=== PATIENT | male | born 1980 | race Hispanic/Latino ===

== ENCOUNTER 2025-10-06 06:53 | Emergency (ER) | payer SELFPAY ==
[~2025-10-06] VITALS: Ht 175.3 cm; Wt 88.0 kg
[2025-10-06] MEDS: CEPHALEXIN 500 MG CAP PO ONE (09:06)
[2025-10-06] MEDS: TETANUS/DIPHTH/ACEL. PERTUSSIS 0.5 ML SYR IM.IMMUN ONE (09:07)
[2025-10-06] MEDS: PERCOCET 5MG/325MG TAB PO ONE (09:08)
[2025-10-06] MEDS ORDERED: CEPH500C PO (09:23)
[2025-10-06] MEDS ORDERED: PERC5TAB12 PO (09:24)
[2025-10-06 09:50] VITALS: BP 121/76; TEMP 97.5; O2SAT 97
== END 2025-10-06 09:52 | disposition home or self-care (01) ==
LOC: M ED 06:53
DX: S68.614A Complete traumatic transphalangeal amputation of right ring finger, initial encounter (principal); W31.82XA Contact with other commercial machinery, initial encounter; Z79.2 Long term (current) use of antibiotics; Z79.899 Other long term (current) drug therapy; Y92.89 Other specified places as the place of occurrence of the external cause; Y93.89 Activity, other specified; Y99.0 Civilian activity done for income or pay; Z23 Encounter for immunization